=== PATIENT | female | born 1990 | race Caucasian/White ===

== ENCOUNTER 2016-11-11 12:19 | Inpatient (IN) ==
[2016-11-11 14:56] LABS: URINE SOURCE VOIDED
[2016-11-11 15:01] LABS: BILIRUBIN URINE NEGATIVE (NEGATIVE); BLOOD URINE 4+ (NEGATIVE); CLARITY VERY CLOUDY (CLEAR); COLOR AMBER; GLUCOSE URINE NEGATIVE (NEGATIVE); LEUKOCYTES URINE 2+ (NEGATIVE); NITRITE URINE NEGATIVE (NEGATIVE); PROTEIN URINE 1+(30 mg/dL) mg/dL (NEGATIVE); SP GRAVITY URINE 1.015; UROBILINOGEN URINE NORMAL
[2016-11-11] MEDS ORDERED: TYLENOL PO PRN (15:09)
[2016-11-11] MEDS ORDERED: PEPCID IV PRN (15:09)
[2016-11-11] MEDS ORDERED: KEFZOL 1 GM/D5W 1 GM/50 ML IVPB IV PRN (15:09)
[2016-11-11] MEDS ORDERED: LR 500 ML IV ONE (15:09)
[2016-11-11] MEDS ORDERED: ZOFRAN IV PRN (15:09)
[2016-11-11] MEDS ORDERED: PEPCID PO ONE (15:09)
[2016-11-11] MEDS ORDERED: REGLAN PO ONE (15:09)
[2016-11-11] MEDS ORDERED: STADOL IV PRN (15:09)
[2016-11-11] MEDS ORDERED: PEPCID PO PRN (15:09)
[2016-11-11] MEDS ORDERED: PITOCIN 30 UNITS/LR 30 UNITS/500 ML IV.SOLN IV SCH (15:15)
[2016-11-11] MEDS ORDERED: LR 1,000 ML IV SCH (15:15)
[2016-11-11] MEDS ORDERED: SODIUM CHLORIDE 0.9% INJ SCH (15:15)
[2016-11-11 15:26] LABS: UR AMPHETAMINES QUAL NONE DETECTED (NONE DETECT); UR BARBITUATES QUAL NONE DETECTED (NONE DETECT); UR BENZODIAZEPIN QUAL NONE DETECTED (NONE DETECT); UR CANNABINOIDS QUAL NONE DETECTED (NONE DETECT); UR COCAINE QUAL NONE DETECTED (NONE DETECT); UR MDMA QUAL NONE DETECTED (NONE DETECT); UR METHADONE QUAL NONE DETECTED (NONE DETECT); UR METHAMPHETAMINE QUAL NONE DETECTED (NONE DETECT); UR OPIATES QUAL NONE DETECTED (NONE DETECT); UR OXYCODONE QUAL NONE DETECTED (NONE DETECT); UR PCP QUAL NONE DETECTED (NONE DETECT); UR TCA QUAL NONE DETECTED (NONE DETECT)
[2016-11-11] MEDS ORDERED: FENTANYL-BUPIV-NS 2 MCG-0.1% 200 ML EPIDURAL PRN (15:36)
[2016-11-11 16:30] LABS: MANUAL DIFF NEEDED? NO
[2016-11-11 16:31] LABS: BASO% 0.2 % (0.0-0.8); EOS# 0.06 X1000 (0.0-0.7); EOS% 0.5 % (0.0-10.0); IMM GRAN# 0.03 X1000 (0.0-0.04); IMM GRAN% 0.2 % (0.0-0.5); LYMPH# 2.63 X1000 (1.2-3.4); MCH 27.6 PG (27-31); MCHC 33.3 g/dL (33-37); MCV 82.8 FL (81-99); MONO# 0.95 X1000 (0.11-0.59); MONO% 7.6 % (1.7-9.3); MPV 13.9 FL (7.4-10.4); NEUT% 70.5 % (42.2-75.2); PLT 126 X1000 (130-400); RBC 4.35 XMIL (4.2-5.4)
[2016-11-11] MEDS ORDERED: MINERAL OIL TOP ONE (16:35)
[2016-11-11] MEDS ORDERED: XYLOCAINE-MPF 1% INJ ONE (16:36)
[2016-11-11] MEDS ORDERED: PITOCIN ONE (18:06)
[2016-11-11] MEDS ORDERED: CYTOTEC PO PRN (18:34)
[2016-11-11] MEDS ORDERED: M-M-R II VACCINE SUBQ ONE (18:34)
[2016-11-11] MEDS ORDERED: PITOCIN IM PRN (18:34)
[2016-11-11] MEDS ORDERED: HYDROXYZINE PO PRN (18:34)
[2016-11-11] MEDS ORDERED: PITOCIN 30 UNITS/LR 30 UNITS/500 ML IV.SOLN IV ONE (18:34)
[2016-11-11] MEDS ORDERED: PITOCIN 20 UNITS/LR 20 UNITS/1,000 ML IV.SOLN IV SCH (18:34)
[2016-11-11] MEDS ORDERED: PERI MEDS (DERMOPLAST/NUPERCAINAL/TUCKS) MISC PRN (18:34)
[2016-11-11] MEDS ORDERED: HYDROXYZINE IM PRN (18:34)
[2016-11-11] MEDS ORDERED: BENADRYL IV PRN (18:34)
[2016-11-11] MEDS ORDERED: BENADRYL PO PRN (18:34)
[2016-11-11] MEDS ORDERED: MINERAL OIL PO PRN (18:34)
[2016-11-11] MEDS ORDERED: BOOSTRIX VACCINE IM ONE (18:34)
[2016-11-11] MEDS ORDERED: XYLOCAINE-MPF 1% INJ PRN (18:34)
[2016-11-11] MEDS: NORCO-10 PO PRN (19:31)
[2016-11-11] MEDS: MOTRIN PO PRN (19:31)
[2016-11-11] MEDS: PERICOLACE PO SCH (21:52)
--- NOTE | 2016-11-11 21:52 | OPERATIVE NOTE ---
PROCEDURE DATE: 11/11/2016 PREDELIVERY DIAGNOSES: 1. Intrauterine at term. 2. Late care. 3. Tobacco abuse. 4. Active labor. POST DELIVERY DIAGNOSES: 1. Intrauterine at term. 2. Late care. 3. Tobacco abuse. 4. Active labor. 5. Meconium-stained amniotic fluid. 6. Occiput posterior presentation of the baby. DELIVERY: Vaginal delivery. PHYSICIAN: Natanael Guthrie MD ANESTHESIA: IV sedation. FINDINGS: Viable male , 6 pounds 8 ounces. Do not have Apgars. The cord was 3 vessels. Placenta was spontaneous, intact. Membranes were meconium stained. Bilateral periurethral tears repaired with 2-0 Vicryl [id number]. ESTIMATED BLOOD LOSS: 150 mL. COUNTS: All counts correct. DESCRIPTION: Ms. Mesa is a 25-year-old 2, para 1, I do not know her exact date of delivery, who presents at 39 and 1/2 weeks with late care and tobacco use in active labor. She has admitted. She was augmented with Pitocin and artificially ruptured, reaches complete cervical dilatation and begins pushing, delivers a viable male , occiput posterior over an intact perineum. Once head delivered, shoulders and rest of the body delivered without difficulty and was placed on mother's abdomen. Cord was doubly clamped and cut. Care of infant was taken over by nursery personnel. The cord was inspected and it was found to have 3 vessels. Cord blood was obtained. Then gentle traction on the cord resulted in delivery of the placenta after approximately 3 minutes. It was inspected and found the membranes to be meconium stained, but it was intact. It was then discarded. Inspection of the perineum and vagina revealed bilateral periurethral tears. 10 mL of 1% lidocaine with epinephrine was used for anesthesia. [id number] stitches were done with 2-0 Vicryl. Once this was done, all counts were correct. Estimated blood loss 150 mL. Expect routine . cc: Natanael Guthrie MD
[2016-11-11] MEDS: NICODERM PATCH TD SCH (21:53)
[2016-11-11] MEDS: NORCO-5 PO PRN (23:19)
[2016-11-12] MEDS: AMBIEN PO PRN ×2 (00:39→22:23)
[2016-11-12] MEDS: NORCO-5 PO PRN (04:34)
[2016-11-12 05:05] LABS: MANUAL DIFF NEEDED? NO
[2016-11-12 05:43] LABS: BASO% 0.1 % (0.0-0.8); EOS# 0.06 X1000 (0.0-0.7); EOS% 0.4 % (0.0-10.0); HEMATOCRIT 29.5 % (37.0-47.0); HEMOGLOBIN 9.3 g/dL (12.0-16.0); IMM GRAN# 0.04 X1000 (0.0-0.04); IMM GRAN% 0.3 % (0.0-0.5); LYMPH% 20.8 % (20.5-51.1); MCH 26.6 PG (27-31); MCHC 31.5 g/dL (33-37); MCV 84.5 FL (81-99); MONO# 1.18 X1000 (0.11-0.59); MONO% 8.2 % (1.7-9.3); MPV 13.6 FL (7.4-10.4); NEUT% 70.2 % (42.2-75.2); PLT 109 X1000 (130-400); RBC 3.49 XMIL (4.2-5.4)
[2016-11-12] MEDS: MOTRIN PO PRN ×3 (07:16→22:24)
[2016-11-12] MEDS: NICODERM PATCH TD SCH (08:34)
[2016-11-12] MEDS: PRECARE PO SCH (08:35)
[2016-11-12] MEDS: NORCO-10 PO PRN ×4 (08:35→22:24)
[2016-11-12] MEDS: ZOLOFT PO SCH (08:35)
[2016-11-12] MEDS ORDERED: EPIFOAM FOAM TOP PRN (10:36)
[2016-11-12] MEDS: PERICOLACE PO SCH (19:57)
[2016-11-13] MEDS: PERICOLACE PO SCH (02:08)
[2016-11-13] MEDS: NORCO-10 PO PRN (05:37)
[2016-11-13 09:04] VITALS: BP 119/62
[2016-11-13] MEDS: PRECARE PO SCH (09:04)
[2016-11-13] MEDS: ZOLOFT PO SCH (09:04)
[2016-11-13] MEDS ORDERED: PNEUMOVAX 23 IM ONE (10:15)
[2016-11-13] MEDS: NICODERM PATCH TD SCH (10:16)
[2016-11-13] MEDS: NORCO-5 PO PRN (10:35)
[2016-11-13] MEDS: MOTRIN PO PRN (10:35)
== END 2016-11-13 11:35 | disposition home or self-care (01) ==
LOC: P.OPLD 12:19 → P.LD 12:24 → P.WC 20:42
PROVIDERS: ADMIT Obstetrics & Gynecology; ATTEND Obstetrics & Gynecology